=== PATIENT | male | born 1995 | race Caucasian/White ===

== ENCOUNTER 2021-10-14 18:31 | Emergency (ER) | payer BC ==
[~2021-10-14] VITALS: Ht 185.4 cm; Wt 79.5 kg
[2021-10-14 18:56] VITALS: BP 131/88; TEMP 98.1
[2021-10-14 20:14] VITALS: PULSE 80
== END 2021-10-14 20:16 | disposition home or self-care (01) ==
LOC: COL.ER 18:31
DX: Z20.3 Contact with and (suspected) exposure to rabies (principal)